=== PATIENT | female | born 1995 | race Caucasian/White ===

== ENCOUNTER 2017-02-12 20:11 | Emergency (ER) | payer MEDICAID ==
[2017-02-12 20:17] VITALS: BP 143/84; PULSE 81; RESP 16; TEMP 98.2; O2SAT 99
--- NOTE | 2017-02-12 20:42 | EDPHY ---
H & P Stated Complaint: sore throat x1 week, R eye redness/irriatation since yesterday HPI/ROS: Chief complaint: Cold symptoms History of present illness: This is a 21-year-old female who presents to the emergency department for evaluation of cold symptoms. Patient reports he has had symptoms for the last week. She reports sore throat, nasal congestion, runny nose, teary eyes and ear pressure. She further reports tactile fevers. She denies precipitating factors. She denies alleviating factors. She denies other associated signs or symptoms: No cough, no trouble breathing, no rash. - Personal History LMP (Females 10-55): Over 28 Days Ago Current Tetanus/Diphtheria Vaccine: Yes Current Tetanus Diphtheria and Acellular Pertussis (TDAP): Yes Tetanus Vaccine Date: 2014 - Medical/Surgical History Hx Asthma: Yes Hx Chronic Respiratory Disease: No Hx Diabetes: No Hx Cardiac Disease: No Hx Renal Disease: No Hx Cirrhosis: No Hx Alcoholism: No Hx HIV/AIDS: No Hx Splenectomy or Spleen Trauma: No Other PMH: PNA. ACL repair right - Social History Smoking Status: Never smoked - Physical Exam Exam: General Appearance: Alert, nontoxic Eyes: No discharge. Pupils equal and round no injection. No subconjunctival hemorrhage. No hyphema. No hypopyon. ENT: Tympanic membranes, external auditory canals, external ears and surrounding soft tissue including over the mastoids are unremarkable. Nasopharynx is not injected. There is no rhinorrhea. Oropharynx is injected. There is no edema. There is no exudate. There is no asymmetry. The uvula is midline. No elevation of the tongue. There is no hoarseness, no drooling, no trismus, no stridor. Respiratory: Chest is non tender, lungs are clear to auscultation. Cardiac: regular rate and rhythm Musculoskeletal: Neck is supple and non tender. Extremities have full range of motion and are non tender. Skin: No rashes or lesions. Neurological: Alert and oriented x4. Strength and sensation intact and symmetrical. No meningismus. Constitutional: Initial Vital Signs Temperature (C) 36.8 C 02/12/17 20:15 Heart Rate 81 02/12/17 20:15 Respiratory Rate 16 02/12/17 20:15 Blood Pressure 143/84 H 02/12/17 20:15 O2 Sat (%) 99 02/12/17 20:15 O2 Delivery Mode Room Air Allergies/Adverse Reactions: sulfamethoxazole [From Bactrim] Allergy (Intermediate, Verified 02/12/17 20:14) trimethoprim [From Bactrim] Allergy (Intermediate, Verified 02/12/17 20:14) amoxicillin Allergy (Mild, Verified 02/12/17 20:14) cephalexin [From Keflex] Allergy (Mild, Verified 02/12/17 20:14) Home Medications: Medication Instructions Recorded Fluticasone Nasal [Flonase Nasal 2 sprays NASAL DAILY #1 mdi 02/12/17 [place] (RX)] ZYRTEC 02/12/17 Medical Decision Making ED Course/Re-evaluation: Patient seen under the supervision of my secondary supervising physician Dr. Joyce Lee. Patient presents to the emergency department for evaluation of cold symptoms. On presentation she is nontoxic. She is afebrile and vital signs are stable. Patient appears to be suffering from an upper respiratory tract infection. Strep swab is negative. I do not appreciate evidence of complications such as abscess or meningitis. I do not believe antibiotics are warranted at this time. She is discharged home. Home care is discussed. She is asked to follow up with a primary care doctor for recheck. Return precautions are given. Patient voiced understanding and agreement with plan. Differential Diagnosis: Included but not limited to pharyngitis, strep pharyngitis, tonsillitis, sinusitis, otitis media - Data Points Laboratory Results: 02/12/17 02/12/17 Unknown 20:20 Group A Strep Screen NEGATIVE (NEGATIVE) Group A Strep DNA Pending Departure - Departure Disposition: Home, Routine, Self-Care Clinical Impression: URI (upper respiratory infection) Qualifiers: URI type: unspecified viral URI Qualified Code(s): J06.9 - Acute upper respiratory infection, unspecified; B97.89 - Other viral agents as the cause of diseases classified elsewhere Condition: Good Instructions: Upper Respiratory Infection (ED) Additional Instructions: Follow-up with a primary care doctor for recheck If symptoms worsen or new symptoms develop return to the emergency room for recheck Referrals: NONE *PRIMARY CARE P,. [Primary Care Provider] - As per Instructions [facility],. [Clinic] - As per Instructions Prescriptions: Fluticasone Nasal [Flonase Nasal [place] (RX)] 2 sprays NASAL DAILY #1 mdi
== END 2017-02-12 21:05 | disposition home or self-care (01) ==
DX: J06.9 Acute upper respiratory infection, unspecified (principal); J45.909 Unspecified asthma, uncomplicated

== ENCOUNTER 2017-08-10 19:05 | Emergency (ER) | payer MEDICAID ==
[2017-08-10 19:12] VITALS: O2SAT 97
[2017-08-10] MEDS ORDERED: AZITHROMYCIN 250 MG TAB PO ONE (19:32)
--- NOTE | 2017-08-10 19:35 | EDPHY ---
H & P Stated Complaint: 1 week of cough and congestion . states coughing causing nausea Time Seen by Provider: 08/10/17 19:26 HPI/ROS: CHIEF COMPLAINT: Cough, sinus congestion, sore throat HISTORY OF PRESENT ILLNESS: Patient is a 21-year-old female who comes to the emergency department complaining of cough as well as sinus congestion and sore throat for the last week. No fevers. She has a history of asthma and has required the use her inhaler more frequently than usual. No nausea but she did vomit once after a strong coughing spell . No chest pain. She has been using [id number] cough suppressants and Mucinex. REVIEW OF SYSTEMS: Constitutional: denies: chills, fever, recent illness, recent injury EENTM: denies: blurred vision, double vision, nose congestion Respiratory: See HPI Cardiac: denies: chest pain, irregular heart rate, lightheadedness, palpitations Gastrointestinal/Abdominal: denies: abdominal pain, diarrhea, nausea, vomiting, blood streaked stools Genitourinary: denies: dysuria, frequency, hematuria, pain Musculoskeletal: denies: joint pain, muscle pain Skin: denies: lesions, rash, jaundice, bruising Neurological: denies: headache, numbness, paresthesia, tingling, dizziness, weakness Hematologic/Lymphatic: denies: blood clots, easy bleeding, easy bruising Immunologic/allergic: denies: HIV/AIDS, transplant EXAM: GENERAL: Well-appearing, well-nourished and in no acute distress. HEAD: Atraumatic, normocephalic. EYES: Pupils equal round and reactive to light, extraocular movements intact, sclera anicteric, conjunctiva are normal. ENT: TMs bilateral effusion, nares patent, oropharynx slightly erythematous without exudates. Moist mucous membranes. NECK: Normal range of motion, supple without lymphadenopathy or JVD. LUNGS: Breath sounds clear to auscultation bilaterally and equal. No wheezes rales or rhonchi. HEART: Regular rate and rhythm without murmurs, rubs or gallops. ABDOMEN: Soft, nontender, normoactive bowel sounds. No guarding, no rebound. No masses appreciated. BACK: No CVA tenderness, no spinal tenderness, step-offs or deformities EXTREMITIES: Normal range of motion, no pitting or edema. No clubbing or cyanosis. NEUROLOGICAL: Cranial nerves II through XII grossly intact. Normal speech, normal gait. 5/5 strength, normal movement in all extremities, normal sensation PSYCH: Normal mood, normal affect. SKIN: Warm, dry, normal turgor, no visible rashes or lesions. Source: Patient Exam Limitations: No limitations - Personal History LMP (Females 10-55): 15-21 Days Ago Tetanus Vaccine Date: 2014 - Medical/Surgical History Hx Asthma: Yes Hx Chronic Respiratory Disease: No Hx Diabetes: No Hx Cardiac Disease: No Hx Renal Disease: No Hx Cirrhosis: No Hx Alcoholism: No Hx HIV/AIDS: No Hx Splenectomy or Spleen Trauma: No Other PMH: asthma. PNA. ACL repair right - Family History Significant Family History: No pertinent family hx - Social History Smoking Status: Never smoked Alcohol Use: Sober Drug Use: None Constitutional: Initial Vital Signs Temperature (C) 37.1 C 08/10/17 19:09 Heart Rate 80 08/10/17 19:09 Respiratory Rate 18 08/10/17 19:09 Blood Pressure 150/81 H 08/10/17 19:09 O2 Sat (%) 97 08/10/17 19:09 O2 Delivery Mode Room Air Allergies/Adverse Reactions: sulfamethoxazole [From Bactrim] Allergy (Intermediate, Verified 02/12/17 20:14) trimethoprim [From Bactrim] Allergy (Intermediate, Verified 02/12/17 20:14) amoxicillin Allergy (Mild, Verified 02/12/17 20:14) cephalexin [From Keflex] Allergy (Mild, Verified 02/12/17 20:14) Home Medications: Medication Instructions Recorded Fluticasone Nasal [Flonase Nasal 2 sprays NASAL DAILY #1 mdi 02/12/17 [place] (RX)] ZYRTEC 02/12/17 AZITHROMYCIN [Z-PACK] 250 mg PO DAILY #6 tab 08/10/17 Medical Decision Making - Diagnostics Imaging: Discussed imaging studies w/ call center receptionist Radiologist ED Course/Re-evaluation: The patient's x-rays reassuring. She is already taking albuterol p.r.n. as well as cough syrup and Mucinex. I will give her dose of Decadron specially considering her asthma history. She is also started on antibiotics. She agrees with this plan. We discussed indications for returning and we discussed follow-up. Differential Diagnosis: Partial list of the Differential diagnosis considered include but were not limited to; upper respiratory tract infection, strep throat, and although unlikely based on the history and physical exam, I also considered pneumonia, bronchitis, pneumothorax, cardiac disease. I discussed these differential diagnoses and the plan with the patient as well as the usual and expected course. The patient understands that the diagnosis is provisional and that in medicine we are not always correct and that further workup is often warranted. Usual and customary warnings were given. All of the patient's questions were answered. The patient was instructed to return to the emergency department should the symptoms at all worsen or return, otherwise to followup with the physician as we discussed. - Data Points Medications Given: Discontinued Medications Azithromycin (Zithromax) 500 mg PO EDNOW ONE PRN Reason: Protocol Stop: 08/10/17 19:33 Last Admin: 08/10/17 19:45 Dose: 500 mg Dexamethasone (Decadron) 10 mg PO EDNOW ONE Stop: 08/10/17 20:32 Last Admin: 08/10/17 20:48 Dose: 10 mg Departure - Departure Disposition: Home, Routine, Self-Care Clinical Impression: Pharyngitis Qualifiers: Pharyngitis/tonsillitis etiology: unspecified etiology Qualified Code(s): J02.9 - Acute pharyngitis, unspecified Condition: Fair Instructions: Pharyngitis (ED) Referrals: [facility] [Other] - As per Instructions Prescriptions: AZITHROMYCIN [Z-PACK] 250 mg PO DAILY #6 tab
[2017-08-10] MEDS ORDERED: DEXAMETHASONE 4 MG TAB PO ONE (20:31)
[2017-08-10 21:12] VITALS: BP 132/71; PULSE 69; RESP 16; TEMP 98.4
== END 2017-08-10 21:12 | disposition home or self-care (01) ==
DX: J02.9 Acute pharyngitis, unspecified (principal); J45.909 Unspecified asthma, uncomplicated

== ENCOUNTER → 2018-11-09 | Outpatient (CLI) | payer MEDICAID | LOC: FIMAGING 17:25 | PROVIDERS: ATTEND Registered Nurse | DX: J40 Bronchitis, not specified as acute or chronic (principal) ==